=== PATIENT | female | born 1990 | race Asian ===

== ENCOUNTER 2020-04-13 12:48 | Emergency (ER) | payer OTHER ==
[~2020-04-13] VITALS: Ht 165.1 cm; Wt 55.8 kg
--- NOTE | 2020-04-13 12:59 | NUR ---
DR SEO AT BEDSIDE
--- NOTE | 2020-04-13 12:59 | NUR ---
CAME IN FOR RLQ PAIN X 3 DAYS; TODAY- PAIN RADIATES TO THE RIGHT FLANK, TO ER BED 9, HOOKED TO BP CUFF AND POX, VSS. CHANGED TO HOSP GOWN, WARM BLANKET PROVIDED, PATIENT AAO X 4, BREATHING EVEN AND UNLABORED. AWAITING MD GUDINO.
--- NOTE | 2020-04-13 13:00 | NUR ---
URINE SAMPLE COLLECTED AND SENT TO LAB
[2020-04-13 13:15] LABS: BASOPHILS # (AUTO) 0.1 /CMM (0.0-0.2); HEMATOCRIT 42 % (33-45); HEMOGLOBIN 13.9 g/dL (11.5-14.8); LYMPHOCYTES # (AUTO) 1.3 /CMM (0.8-4.8); LYMPHOCYTES % (AUTO) 22.9 % (20.0-44.0); MEAN CORPUSCULAR HGB CONC 33 g/dl (31.0-36.0); MEAN CORPUSCULAR VOLUME 95 fL (82-100); MONOCYTES # (AUTO) 0.5 /CMM (0.1-1.30); MONOCYTES % (AUTO) 8.1 % (2.0-12.0); NEUTROPHILS # (AUTO) 3.8 /CMM (1.8-8.9); PLATELET COUNT (AUTO) 204 /CMM (150-450); RED BLOOD CELL COUNT(AUTO) 4.45 MIL/uL (4.0-5.2); WHITE BLOOD COUNT (AUTO) 5.7 K/uL (4.3-11.0)
[2020-04-13 13:18] LABS: APPEARANCE,URINE Clear (CLEAR); BILIRUBIN,URINE Negative (NEGATIVE); BLOOD, URINE Negative Ery/uL (NEGATIVE); COLOR,URINE Yellow (YELLOW); KETONES,URINE Negative (NEGATIVE); LEUKOCYTE ESTERASE ,URINE Negative (NEGATIVE); NITRITE, URINE Negative (NEGATIVE); PH,URINE 5.5 (5.0-8.0); PROTEIN,URINE Negative (NEGATIVE); UGLUCOSE Negative (NEGATIVE); UROBILINOGEN,URINE 0.2 EU/dL (0.2)
[2020-04-13 13:20] LABS: CALCIUM, SERUM 8.9 mg/dL (8.5-10.1); CREATININE 0.7 mg/dL (0.6-1.3); POTASSIUM 3.5 mmol/L (3.5-5.1)
[2020-04-13 13:25] LABS: ALBUMIN 4.6 g/dL (3.4-5.0); BILIRUBIN,DIRECT 0.1 mg/dL (0.0-0.2); BILIRUBIN,TOTAL 0.4 mg/dL (0.2-1.0); TOTAL PROTEIN, SERUM 8.2 g/dL (6.4-8.2)
--- NOTE | 2020-04-13 13:25 | NUR ---
WHEELED OUT VIA [facility]NEY FOR CT SCAN
[2020-04-13] MEDS ORDERED: KETOROLAC TROMETHAMINE 15 MG/ML VIAL ONE (13:26)
[2020-04-13] MEDS ORDERED: KETOROLAC TROMETHAMINE INJ 30 MG/ML VIAL IV ONE (13:30)
[2020-04-13] MEDS ORDERED: IV NS 0.9% 1,000 ML BAG IV ONE (13:30)
--- NOTE | 2020-04-13 13:34 | NUR ---
PATIENT BACK FROM CT SCAN
--- NOTE | 2020-04-13 13:53 | NUR ---
PASTER SUPERVISOR AT BEDSIDE FOR BHARGAVI
--- NOTE | 2020-04-13 13:57 | NUR ---
REPORT GIVEN TO NICK BEDOLLA FOR ADRIANO
--- NOTE | 2020-04-13 14:22 | NUR ---
Patient a/ox4, breathing even and unlabored, no sob noted. Ambulatory with steady gait. IV removed. Catheter intact and site benign. Pressure and 4x4 applied to site. No bleeding noted. Patient discharged to home in stable condition. Written and verbal after care instructions given. Patient verbalizes understanding of instruction.
[2020-04-13 14:23] VITALS: BP 117/74
== END 2020-04-13 14:39 | disposition home or self-care (01) ==
LOC: ER 12:48
DX: N83.291 Other ovarian cyst, right side (principal)
CPT/HCPCS: 36415; 74176; 76856; 80048; 80076; 81001; 83690; 84703; 85025; 96361; 96374; 99285; J1885; J7030; 81000-TC